=== PATIENT | female | born 1950 | race Native Hawaiian/Other Pacific Islander ===

== ENCOUNTER 2016-05-12 12:34 | Emergency (ER) | payer OTHER ==
[~2016-05-12] VITALS: Ht 157.5 cm; Wt 86.2 kg
[2016-05-12 13:06] LABS: PLATELET COUNT 237 K/uL (152-353)
[2016-05-12 13:13] LABS: SODIUM 137 mmol/L (136-145)
[2016-05-12 14:12] VITALS: BP 149/60; TEMP 98.2
== END 2016-05-12 14:12 | disposition home or self-care (01) ==
LOC: ED 12:34
DX: I10 Essential (primary) hypertension (principal); E11.65 Type 2 diabetes mellitus with hyperglycemia
CPT/HCPCS: 80053; 81000; 83036; 85027; 99283